=== PATIENT | male | born 1995 | race Caucasian/White ===

== ENCOUNTER 2021-07-05 21:12 | Emergency (ER) | payer OTHER, SELFPAY ==
--- NOTE | ~2021-07-05 | XR_ITS ---
XR wrist RT min 3V DATE: 07/05/2021 22:43 INDICATION: Right wrist pain, loss of mobility. No known injury. TECHNIQUE: 4 views COMPARISON: None FINDINGS: No fracture or dislocation, periosteal reaction or bone destruction, joint space narrowing, erosive change or chondrocalcinosis is evident. IMPRESSION: Negative Reviewed, dictated and finalized at location A. IMPRESSION: Negative
[2021-07-05 21:17] VITALS: BP 140/115; PULSE 108; RESP 16; TEMP 36.4; O2SAT 99
--- NOTE | 2021-07-05 22:33 | ED_ITS ---
HPI - Extremity Injury (Upper) General Chief Complaint: Extremity Injury, Upper Stated Complaint: right wrist injury Time Seen by Provider: 07/05/21 22:15 Source: patient Mode of arrival: ambulatory Limitations: no limitations History of Present Illness HPI narrative: Patient is a 26-year-old male complaining of right wrist pain that started earlier today. Patient states that his pain is an 8 out of 10, worse with movement and palpation. Patient can recall if he injured it or not. Patient denies any numbness, weakness or redness of his right upper extremity. Patient denies any fever or chills. Review of Systems Review of Systems: All systems reviewed & are unremarkable except as noted in HPI and below PMFSH Comments Past medical history: Hip dysplasia Family history: Noncontributory Social history: Non-smoker no EtOH or drug use Exam Const: General: no acute distress and alert Nutritional Appearance: obese Orientation/consciousness: patient oriented x3 HENMT: Head: normal to inspection Neck: Neck: normal visual inspection Resp: Effort & Inspection: normal respiratory effort Skin: General skin exam: normal color Neuro: General: patient oriented x3 and moves all extremities Extrem: Other: Mild right wrist swelling, decreased range of motion due to pain, pain on palpation of the right wrist, neurovascular is intact Course Vital Signs Vital signs: Vital Signs Temperature 36.4 C L 07/05/21 21:17 Pulse Rate 108 H 07/05/21 21:17 Respiratory Rate 16 07/05/21 21:17 Blood Pressure 140/115 H 07/05/21 21:17 Pulse Oximetry 99 07/05/21 21:17 Temperature 36.4 C L 07/05/21 21:17 Pulse Rate 108 H 07/05/21 21:17 Respiratory Rate 16 07/05/21 21:17 Blood Pressure 140/115 H 07/05/21 21:17 Pulse Oximetry 99 07/05/21 21:17 Discharge Plan Discharge Clinical Impression: Sprain and strain of wrist Patient Disposition: Home, Self-Care Condition: Improved Instructions: Wrist Sprain (ED) Follow-up/Referrals: PHYSICIAN,HEALTH CARE SANITARY TECHNICIAN [Primary Care Provider] - Giovanny Moran MD [Physician] - 07/06/21 (Call for an appointment) Time of Disposition: 23:36
[2021-07-05] MEDS: KETOROLAC 30 MG/ML VIAL (*BKC) IM (23:30)
[2021-07-05] MEDS: CYCLOBENZAPRINE HCL 10 MG TABLET PO (23:31)
[2021-07-06 00:08] VITALS: BP 136/99; PULSE 94; RESP 20; O2SAT 98
== END 2021-07-06 00:10 | disposition home or self-care (01) ==
PROVIDERS: Emergency Provider Emergency Medicine
DX: S63.501A Unspecified sprain of right wrist, initial encounter (principal); S66.911A Strain of unspecified muscle, fascia and tendon at wrist and hand level, right hand, initial encounter; X58.XXXA Exposure to other specified factors, initial encounter
CPT/HCPCS: 73110; 96372; 99283; A9270; J1885

== ENCOUNTER 2023-03-30 12:20 | Emergency (ER) | payer SELFPAY ==
--- NOTE | ~2023-03-30 | XR_ITS ---
EXAMINATION: XR hand RT min 3V INDICATION: Right hand pain after fall TECHNIQUE: Three views of the right hand are obtained. COMPARISON: None available FINDINGS: Burst fractures one described on the wrist radiographs. In the hand, bone alignment is norm al. There is no hand fracture. The joint spaces of the hand are normal. IMPRESSION: 1. No acute osseous abnormality of the hand. Reviewed, dictated and finalized at location A.
--- NOTE | ~2023-03-30 | XR_ITS ---
CORRECTED REPORT exam description change 03/31/23 ANNETTE This report was recreated on 03/31/23. Original report was EXAM: XR wrist RT 2V DATE: 03/30/2023 16:36 HISTORY: reduction . COMPARISON: Same date at 12:43 PM. FINDINGS/IMPRESSION: Osseous detail partially obscured by overlying cast material. Improved alignment of the comminuted distal right radial fracture, with decreased impaction and decreased displacement of the fracture fragments. Similar ulnar styloid fracture. Reviewed, dictated and finalized at location [facility]
--- NOTE | ~2023-03-30 | XR_ITS ---
EXAMINATION: XR wrist RT min 3V INDICATION: Right wrist pain, initial encounter TECHNIQUE: Three views of the right wrist are obtained. COMPARISON: None available FINDINGS: There is an acute, traumatic, closed, comminuted intra-articular fracture of the distal rad ius. A transverse ulnar styloid avulsion is noted. Soft tissue swelling surrounds the fractures. No a dditional wrist fracture is identified. IMPRESSION: 1. Comminuted intra-articular fracture of the distal radius. 2. Transverse ulnar styloid avulsion. Reviewed, dictated and finalized at location A.
[2023-03-30 12:23] VITALS: BP 150/100; PULSE 105; RESP 17; TEMP 37.1; O2SAT 99
--- NOTE | 2023-03-30 12:35 | ED.GENADULT ---
HPI - General Adult General Chief complaint: Extremity Injury, Upper Stated complaint: wrist injury Time Seen by Provider: 03/30/23 12:26 History of Present Illness HPI narrative: Shailesh Catalan is a 28 y/o male who presents with reports of falling backwards on to his right hand outstretched about 1130 today. He denies hitting head, denies LOC. Related Data Allergies Allergy/AdvReac Type Severity Reaction Status Date / Time No Known Allergies Allergy Verified 03/30/23 12:32 Review of Systems Review of Systems: CONSTITUTIONAL: Denies fever, chills, or sweats. EYES: Denies visual changes, redness, or discharge. ENT: Denies rhinorrhea, congestion, sore throat, or otalgia. CARDIOVASCULAR: Denies chest pain, palpitations, or edema. RESPIRATORY: Denies cough or dyspnea. GASTROINTESTINAL: Denies abdominal pain, nausea, vomiting, or diarrhea. GENITOURINARY: Denies dysuria or hematuria. SKIN: Denies rash or itching. MUSCULOSKELETAL: Pain swelling to right wrist, no elbow/ shoulder pain NEUROLOGIC: Denies headache, numbness, dizziness, or weakness. PSYCHIATRIC: Denies anxiety or depression. Exam Narrative: GENERAL: Well-appearing, well-nourished, and in no acute distress. HEAD: Normocephalic, atraumatic. EYES: PERRLA and EOMI. ENT: Nares clear, no rhinorrhea or epistaxis. Mucous membranes moist. Oropharynx without tonsillar hypertrophy exudate or other lesions. NECK: Supple. No adenopathy or masses. No carotid bruits or JVD CHEST: Clear to auscultation. No respiratory distress. No wheezes rales or rhonchi HEART: Regular rate and rhythm. No murmur heard. Normal peripheral pulses. ABDOMEN: Soft, nontender, nondistended, normal active bowel sounds. EXTREMITIES: Swelling noted to right wrist, radial and ulnar pulses present, limited ROM could be related to pain. SKIN: Warm, dry, no rash. NEURO: No focal deficits. Alert and oriented x3. PSYCH: Normal mood and affect. Course Vital Signs Vital signs: Vital Signs Temperature 37.1 C 03/30/23 12:23 Pulse Rate 105 H 03/30/23 12:23 Respiratory Rate 17 03/30/23 12:23 Blood Pressure 150/100 H 03/30/23 12:23 Pulse Oximetry 99 03/30/23 12:23 Oxygen Delivery Room Air 03/30/23 12:23 Temperature 37.1 C 03/30/23 12:23 Pulse Rate 97 03/30/23 17:03 Respiratory Rate 18 03/30/23 17:03 Blood Pressure 137/84 03/30/23 17:03 Pulse Oximetry 98 03/30/23 17:03 Oxygen Delivery Room Air 03/30/23 12:23 Vitals reviewed by me. Medical Decision Making MDM Narrative Medical decision making narrative: On exam pt is found to be uncomfortable holding on to right wrist unable to move right hand could be related to pain. swelling noted to right wrist. radial and ulnar pulses present Concern for: wrist fracture/ scaphoid fracture/ dislocation/ ligament damage/ X ray is shows there is an acute, traumatic, closed, comminuted intra-articular fracture of the distal radius. A transverse ulnar styloid avulsion is noted. Soft tissue swelling surrounds the fractures. No additional wrist fracture is identified. Two point discrimination completed, radial pulses present and pt is neurovascular intact After the pain medication pt evaluated for his ROM with his right wrist and he has full ROM of his phalanges Called Dr. Moran with Ortho for consult and recommendations. Dr. Moran was concerned for a displacement and wanted a Hand surgeon consulted Called Dr. George with plastics who says he does not do these fractures and should consult with [facility] or [place] Patient updated and he states that he prefers [facility] called and Dr. Ayers from Ortho said she would accept pt but he needs to be reduced today and their ED is not taking non critical transfers at this time. Collaborated with Dr. Ball who did the radial reduction with a dose of IV hydromorphone. Patient tolerated this well. Post reduction films sent over to Ortho Dr. Ayers at [facility]
[2023-03-30] MEDS: ONDANSETRON INJ 4 MG/2 ML VIAL IV PUSH (13:05)
[2023-03-30] MEDS: KETOROLAC 30 MG/ML VIAL (*BKC) IV PUSH (13:07)
[2023-03-30] MEDS: MORPHINE SULFATE (*CRX) 4 MG/ML INJ IV PUSH (13:10)
[2023-03-30] MEDS: HYDROcodone/acetaminophen (*CRX) 5-325 MG TABLET 1 TAB PO (13:59)
[2023-03-30 15:37] VITALS: BP 147/114; PULSE 100; RESP 20; O2SAT 98
[2023-03-30] MEDS: HYDROmorphone HCL INJ (*CRX) 1 MG/ML SYR IV PUSH (16:12)
[2023-03-30 17:03] VITALS: BP 137/84; PULSE 97; RESP 18; O2SAT 98
== END 2023-03-30 18:10 | disposition home or self-care (01) ==
PROVIDERS: Emergency Provider Nurse Practitioner Family
DX: S52.571A Other intraarticular fracture of lower end of right radius, initial encounter for closed fracture (principal); S52.611A Displaced fracture of right ulna styloid process, initial encounter for closed fracture; W19.XXXA Unspecified fall, initial encounter
CPT/HCPCS: 25605; 73100; 73110; 73130; 96374; 96375; 99285; A4565; A9270; J1170; J1885; J2270; J2405